=== PATIENT | female | born 1960 | race American Indian/Alaskan Native ===

== ENCOUNTER 2016-08-18 14:31 | Outpatient (CLI) | payer BC ==
--- NOTE | 2016-08-18 16:21 | Mammography Report ---
Bilateral mammogram and bilateral breast ultrasound: History: Prior surgery removing tissue below each axilla. Patient continues to feel extra tissue in these regions. No discrete nodule and no recent changes. Routine mammography with exaggerated CC views of the lateral breasts is performed and compared to prior studies dating back to 2013. The patient has a heterogeneously dense and symmetrically distributed fibroglandular pattern. A couple small circumscribed nodules are noted inferiorly on the right. These findings are all unchanged. No new findings. Ultrasound of the right breast demonstrates a 4 mm circumscribed anechoic nodule in the 8:00 location and a similar nodule measuring 6 mm in the 12:00 location 7 cm from the nipple. A circumscribed 6 mm nodule which is homogeneously hypoechoic is noted near the nipple in the 3:00 location of the left breast. No other findings. CAD used. Impressions: 1. Stable mammogram. No suspicious finding. 2. 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 3. There are no abnormal findings of significance in the areas identified by the patient. Recommendation: 1. Clinical followup with annual mammogram. Additional evaluation for her complaints at this time should be based on your concern. 2. Repeat left ultrasound for retroareolar nodule in 6 months. BI-RADS CATEGORY: 3 = Probably benign ACR BI-RADS MAMMOGRAPHIC CODES: 0 = Needs additional imaging evaluation; 1 = Negative; 2 = Benign; 3 = Probably benign; 4 = Suspicious; 5 = Malignant; 6 = Known biopsy-proven malignancy COMMENT: 1. Dense breast tissue, i.e., adenosis, fibrocystic changes, etc., may obscure an underlying neoplasm. 2. Approximately 10% of cancers are not detected with mammography. 3. A negative mammography report should not delay biopsy if a clinically suspicious mass is present.
== END 2016-08-18 14:32 | disposition home or self-care (01) ==
LOC: MAMMO 14:31
DX: N63 Unspecified lump in breast (principal)
CPT/HCPCS: 76642; G0204; 77066